=== PATIENT | female | born 1965 | race Caucasian/White ===

== ENCOUNTER 2021-10-04 10:52 | Observation (INO) | payer BC ==
--- OUTSIDE RECORDS SUMMARY | 2021-10-04 10:55 | XMS REPORT | Continuity of Care Document ---
:1965 Author Organization [facility] t Address [address] [place] [address] Care Team Providers Name Role Phone ADELAIDA Attending Clinician Unavailable Lab, Fam Pob I Attending Clinician Unavailable Anene PACKAGING SUPERVISOR Attending Clinician ANENE Attending Clinician Unavailable Doctor Unassigned, Name Attending Clinician Unavailable ADELAIDA Admitting Clinician Unavailable NARCISO Admitting Clinician Unavailable Payers Payer Name Policy Type Policy Number Effective Date Expiration Date S hellen BS OS [id number] 2017 00:00:00 POS/PPO/EPO Problems This patient has no known problems. Allergies, Adverse Reactions, Alerts Allergy Allergy Status Severity Reaction(s) Onset Inactive Treating Comm ents Source Name Type Date Date Clinician PROPOXYP Allergy Active 2020-[address] [facility]OPHEN 00 Center PENICILL Allergy Active 2020-[address] [facility] NO KNOWN Drug Active Univers ALLERGIE Class it[facility] of [facility] Social History Social Habit Start Date Stop Date Quantity Comments Source Exposure to Yes [facility] SARS-CoV-2 (event) Medica l Branch Sex Assigned At [birth year] [facility] 00:00:00 00:00:00 [facility] Smoking Status Start Date Stop Date Source Unknown if ever smoked [facility] Medications This patient has no known medications. Vital Signs Vital Name Observation Time Observation Value Comments Source HEIGHT 2020-04-01 00:00:00 173.7 cm WEIGHT 2020-04-01 00:00:00 76 kg HEIGHT 2020-04-01 00:00:00 173.7 cm WEIGHT 2020-04-01 00:00:00 76 kg Procedures This patient has no known procedures. Encounters Start End Encounter Admission Attending Care Care Encounter Source Date/Time Date/Time Type Type Clinicians Facility Department ID 2020-04-01 Inpatient ER ADELAIDA [facility] [id number] [facility] 19:58:00 ZAIN Med 2020-11-03 2020-11-03 Laboratory Lab, Adc Fam Pob I [facility] [id number] Univers 14:44:53 15:04:53 Only Niru [facility] [id number] [facility] of [facility] [id number] Silas as Professio [phone] [address] Office Building One 2020-11-03 2020-11-03 Outpatient R [facility] [id number] [facility] 14:40:00 14:40:00 NIRU it[facility] of [facility] 2020-11-03 2020-11-03 Letter Doctor TIERA [id number] Univers 00:00:00 00:00:00 (Out) Unassigned, DENILSON [id number] ity of [place] [facility] [id number] Silas as [phone] [address] Results Test Description Test Time Test Comments Results Result Comments Source BLOOD CULTURE 2020-04-07 01:01:00 Test Item Value Reference Range Interpretation Comme nts CULTURE (BEAKER) (test code = 1095) No growth in 5 days BLOOD [id number] 01:01:00 Test Item Value Reference Range Interpretation Comments CULTURE (BEAKER) (test No growth in 5 days code = 1095) TISSUE [id number] 10:54:00Surgical Pathology Report Case: [id number] Authorizing Provider: Duc Byers MD Collected: 04/03/2020 07:13 AM Ordering Location: [address] Med/Surg Received: 04/03/2020 08:34 AM Pathologist: Xin Hansen MD Specimen: Ul cer, pyloric ulcer PYLORIC ULCER, BIOPSY: - ANTRAL MUCOSA WITH REACTIVE GASTROPATHY WITH FOCAL ACUTE INFLAMMATION - NO INTESTINAL METAPLASIA, DYSPLASIA OR MALIGNANCY SEEN - NEGATIVE FOR H. PYLORI ORGANISMS Signing Pathologist Direct Phone Line: [phone] signed by Xin Hansen MD on 04/06/2020 at 10:54 [id number]; [id number] pain and weight lossPyloric ulcerSpecimen A is received in fixative and labeled with the patient's name, medical record number and designated as "ulcer" and consists of a pink-conklin tissue fragment that is 0.5 cm in greatest dimension. The tissue fragment is entirely submitted into A1. MG/pl Performed The interpretation of this case included the use of immunohistochemistryor special stains.Anand-starshakira: Negative for Helicobacter Pylori organisms. Control Slides Examined: In-house known positive controls were evaluated along with the test tissue. These control slidesrun alongside of the patients sample show appropriate staining. Internal positive and negative controls when available are evaluated Immunohistochemistry technical testing was performed at [facility], Pathology Laboratory where it was developed and its performance characteristicswere determined. It has not been cleared or approved by the U.S. Food and Drug Administration. The FDA has determined that such clearance or approval is not necessary. The test is used for clinical purposes. It should not be regarded as investigational or for research. This laboratory is certified under the Clinical Laboratory Improvement Amendments of 1988 (CLIA-88) as qualified to perform high complexity clinical laboratory testing.BASIC METABOLIC [id number] 14:16:00 Test Item Value Reference Range Interpretation Comments SODIUM (BEAKER) 134 meq/L 135-148 L (test code = 381) POTASSIUM (BEAKER) 3.0 meq/L 3.6-5.5 L (test code = 379) CHLORIDE (BEAKER) 100 meq/L 98-106 (test code = 382) CO2 (BEAKER) (test 24 meq/L 20-29 code = 355) BLOOD UREA NITROGEN 5 mg/dL 10-26 L (BEAKER) (test code = 354) CREATININE (BEAKER) 0.69 mg/dL 0.50-1.20 (test code = 358) GLUCOSE RANDOM 134 mg/dL 70-110 H (BEAKER) (test code = 652) CALCIUM (BEAKER) 8.4 mg/dL 8.5-10.5 L (test code = 697) EGFR (BEAKER) (test 89 mL/min/1.73 ESTIMA OSVALDO GFR IS code = 1092) sq m NOT ACCURATE CREATININE CLEARANCE IN PREDICTING GLOMERULAR FILTRATION RATE . ESTIMATED GFR I S NOT APPLICABLE FOR DIALYSIS PATIEN TS. Sweater Operator ID - TSYRBASIC METABOLIC [id number] 06:48:00 Test Item Value Reference Range Interpretation Comments SODIUM (BEAKER) 138 meq/L 135-148 (test code = 381) POTASSIUM (BEAKER) 2.8 meq/L 3.6-5.5 L (test code = 379) CHLORIDE (BEAKER) 100 meq/L 98-106 (test code = 382) CO2 (BEAKER) (test 25 meq/L 20-29 code = 355) BLOOD UREA NITROGEN 4 mg/dL 10-26 L (BEAKER) (test code = 354) CREATININE (BEAKER) 0.66 mg/dL 0.50-1.20 (test code = 358) GLUCOSE RANDOM 92 mg/dL 70-110 (BEAKER) (test code = 652) CALCIUM (BEAKER) 8.5 mg/dL 8.5-10.5 (test code = 697) EGFR (BEAKER) (test 94 mL/min/1.73 ESTIMA OSVALDO GFR IS code = 1092) sq m NOT ACCURATE CREATININE CLEARANCE IN PREDICTING GLOMERULAR FILTRATION RATE . ESTIMATED GFR I S NOT APPLICABLE FOR DIALYSIS PATIEN TS. Sweater Operator ID - [id number] 06:20:00 Test Item Value Reference Range Interpretation Comments MAGNESIUM (BEAKER) (test code = 1.6 mg/dL 1.5-3.0 627) Sweater Operator ID - [id number] (HEMOGRAM ONLY)2020-04-04 05:42:00 Test Item Value Reference Range Interpretation Comments WHITE BLOOD CELL COUNT (BEAKER) 16.4 K/ L 4.0-10.0 H (test code = 775) RED BLOOD CELL COUNT (BEAKER) 4.08 M/ L 4.00-5.00 (test code = 761) HEMOGLOBIN (BEAKER) (test code = 12.7 GM/DL 12.0-15.5 410) HEMATOCRIT (BEAKER) (test code = 37.3 % 36.0-46.0 411) MEAN CORPUSCULAR VOLUME (BEAKER) 91.4 fL 82.0-99.0 (test code = 753) MEAN CORPUSCULAR HEMOGLOBIN 31.1 pg 27.0-33.0 (BEAKER) (test code = 751) MEAN CORPUSCULAR HEMOGLOBIN CONC 34.0 GM/DL 32.0-36.0 (BEAKER) (test code = 752) RED CELL DISTRIBUTION WIDTH 12.6 % 12.0-15.0 (BEAKER) (test code = 412) PLATELET COUNT (BEAKER) (test 233 K/CU MM 150-430 code = 756) MEAN PLATELET VOLUME (BEAKER) 9.7 fL 6.0-11.5 (test code = 754) NUCLEATED RED BLOOD CELLS 0 /100 WBC 0-0 (BEAKER) (test code = 413) U/S, ABDOMINAL, [id number] 17:44:00Reason for exam:->persistent nausea and abdominal painFINAL REPORT EXAM: U/S, ABDOMINAL, COMPLETEDATE: 04/03/2020 5:36 PM INDICATION: Persistent nausea and generalized abdominal painCOMPARISON: None TECHNIQUE: Transverse and longit udinal raines scale and color doppler sonographic images of the abdomen were obtained. FINDINGS: LIVER15.3 cm in the right midclavicular line.Liver is mildly echogenic with normal contour, no masses. SPLEEN9.8 cm in maximum diameter.Normal echogenicity, no masses. GALLBLADDERSurgically absent. BILE DUCTSNo intra nor extra-hepatic biliary dilation.Common bile duct measures 1.1cm PANCREAS: Not well visualized RIGHT KIDNEY: 10.6 cmEchogenicity: NormalCollecting System: No hydronephrosisStones: NoneCyst/Mass: None LEFT KIDNEY: 11.6 cmEchogenicity: NormalCollecting System: No hydronephrosisStones: NoneCyst/Mass: None VESSELS:Aorta: Visualized portions are within normal size limitsInferior Vena Cava: Visualized portions are normalMain Portal Vein: 1.0 cm, normal size with hepatopetal flow. FREE FLUID: None IMPRESSION: 1. Hepatic steatosis.2. Postoperative changes from cholecystectomy. CBD measures up to 1.1 cm. Negative for intrahepatic biliary dilatation. Extrahepatic biliary dilatation can be seen in patients with postcholecystectomy state. Correlate with lab values. Consider follow-up MRCPif clinically indicated. Signed: Jessica Forrester MDReport Verified Date/Time: 04/03/2020 17:44:29 Reading Location: [facility] C013T Transitional Reading Room SARS-COV2/RT-PCR ([facility])2020-04-02 22:33:00 Test Item Value Reference Range Interpretation Comments SARS-COV2/RT-PCR (test Negative Not Detected, Negative, code = 8452577) See external report for linked test SARS-COV-2 PERFORMING LAB [facility] AGNIESZKA (test code = 6886278) Negative result for this test determines that SARS-CoV-2 RNA was not present in the specimen above the Limit of Detection (LOD). However, Negative results do not preclude SARS-CoV-2 infection and should not be used as the sole basis for treatment or patient management decisions. Negative results mustbe combined with clinical observations, patient history, and epidemiological information. A false negative result may occur if a specimen is improperly collected, transported or handled. A false negative result should be considered if patient's recent exposures or clinical presentation indicate that COVID-19 (SARS-CoV-2) is likely and diagnostic tests for other causes of illness are negative. Re-testing should be considered in cases of suspected false negatives.The limit of detection for this assay is 800 copies/mL.This SARS CoV-2 test is a real-time RT-PCR test intended for the qualitative detection of nucleic acid from SARS-CoV-2 in a nasopharyngeal swab specimen collected from individuals susp ected of COVID-19 by their healthcare provider.This test has not been Food and Drug Administration (FDA) cleared or approved. This is a modified version of an approved Emergency Use Authorization (EUA) and is in the process of review by the FDA. Once authorized by the FDA, the issued EUA will be effective until the declaration that circumstances exist justifying the authorization of the emergency use of in vitro diagnostic tests for detection and/or diagnosis of COVID-19 is terminated under Section 564(b)(2) of the Act or the EUA is revoked under Section 564(g) of the Act.Fact Sheet for Healthcare Providers:https://www.Synference.com/sites/default/files/product/documents/Fact_Alexandro moralest_YK_Xjxqfnlyk_Rhkk_QVFD-VhF-8.pdfFact Sheet for Healthcare Patients:https://www.Synference.Celleration/sites/default/files/product/ documents/Uwju_Nxjvp_Jphegnov_Tlii_NWJC-EaB-3.pdfPerforming Laboratory:[facility] [place], [place] [address]UMQNV METABOLIC PANEL 2020-04-02 11:24:00 Test Item Value Reference Range Interpretation Comments SODIUM (BEAKER) 138 meq/L 135-148 (test code = 381) POTASSIUM (BEAKER) 3.1 meq/L 3.6-5.5 L (test code = 379) CHLORIDE (BEAKER) 105 meq/L 98-106 (test code = 382) CO2 (BEAKER) (test 24 meq/L 20-29 code = 355) BLOOD UREA NITROGEN 9 mg/dL 10-26 L (BEAKER) (test code = 354) CREATININE (BEAKER) 0.71 mg/dL 0.50-1.20 (test code = 358) GLUCOSE RANDOM 99 mg/dL 70-110 (BEAKER) (test code = 652) CALCIUM (BEAKER) 8.4 mg/dL 8.5-10.5 L (test code = 697) EGFR (BEAKER) (test 86 mL/min/1.73 ESTIMA OSVALDO GFR IS code = 1092) sq m NOT ACCURATE CREATININE CLEARANCE IN PREDICTING GLOMERULAR FILTRATION RATE . ESTIMATED GFR I S NOT APPLICABLE FOR DIALYSIS PATIEN TS. Sweater Operator ID - [id number] (HEMOGRAM ONLY)2020-04-02 11:08:00 Test Item Value Reference Range Interpretation Comments WHITE BLOOD CELL COUNT (BEAKER) 18.2 K/ L 4.0-10.0 H (test code = 775) RED BLOOD CELL COUNT (BEAKER) 4.05 M/ L 4.00-5.00 (test code = 761) HEMOGLOBIN (BEAKER) (test code = 12.7 GM/DL 12.0-15.5 410) HEMATOCRIT (BEAKER) (test code = 38.7 % 36.0-46.0 411) MEAN CORPUSCULAR VOLUME (BEAKER) 95.6 fL 82.0-99.0 (test code = 753) MEAN CORPUSCULAR HEMOGLOBIN 31.4 pg 27.0-33.0 (BEAKER) (test code = 751) MEAN CORPUSCULAR HEMOGLOBIN CONC 32.8 GM/DL 32.0-36.0 (BEAKER) (test code = 752) RED CELL DISTRIBUTION WIDTH 13.2 % 12.0-15.0 (BEAKER) (test code = 412) PLATELET COUNT (BEAKER) (test 286 K/CU MM 150-430 code = 756) MEAN PLATELET VOLUME (BEAKER) 9.6 fL 6.0-11.5 (test code = 754) NUCLEATED RED BLOOD CELLS 0 /100 WBC 0-0 (BEAKER) (test code = 413) CBC W/PLT COUNT & AUTO [id number] 23:22:00 Test Item Value Reference Range Interpretation Comments WHITE BLOOD CELL COUNT (BEAKER) 24.2 K/ L 4.0-10.0 H (test code = 775) RED BLOOD CELL COUNT (BEAKER) 4.53 M/ L 4.00-5.00 (test code = 761) HEMOGLOBIN (BEAKER) (test code = 14.3 GM/DL 12.0-15.5 410) HEMATOCRIT (BEAKER) (test code = 43.4 % 36.0-46.0 411) MEAN CORPUSCULAR VOLUME (BEAKER) 95.8 fL 82.0-99.0 (test code = 753) MEAN CORPUSCULAR HEMOGLOBIN 31.6 pg 27.0-33.0 (BEAKER) (test code = 751) MEAN CORPUSCULAR HEMOGLOBIN CONC 32.9 GM/DL 32.0-36.0 (BEAKER) (test code = 752) RED CELL DISTRIBUTION WIDTH 13.2 % 12.0-15.0 (BEAKER) (test code = 412) PLATELET COUNT (BEAKER) (test 309 K/CU MM 150-430 code = 756) MEAN PLATELET VOLUME (BEAKER) 10.0 fL 6.0-11.5 (test code = 754) NUCLEATED RED BLOOD CELLS 0 /100 WBC 0-0 (BEAKER) (test code = 413) (MANUAL DIFFERENTIAL)2020-04-01 23:22:00 Test Item Value Reference Range Interpretation Comments NEUTROPHILS - REL (DIFF) (BEAKER) 76 % (test code = 1359) LYMPHOCYTES - REL (DIFF) (BEAKER) 19 % (test code = 1360) MONOCYTES - REL (DIFF) (BEAKER) 5 % (test code = 1361) NEUTROPHILS - ABS (DIFF) (BEAKER) 18.39 K/ L 1.80-8.00 H (test code = 1365) LYMPHOCYTES - ABS (DIFF) (BEAKER) 4.60 K/ L 1.48-4.50 H (test code = 1366) MONOCYTES - ABS (DIFF) (BEAKER) 1.21 K/ L 0.00-1.30 (test code = 1367) TOTAL COUNTED (BEAKER) (test code 100 = 1351) WBC MORPHOLOGY (BEAKER) (test code Normal = 487) PLT MORPHOLOGY (BEAKER) (test code Normal = 486) RBC MORPHOLOGY (BEAKER) (test code Normal = 762) BASIC METABOLIC [id number] 22:55:00 Test Item Value Reference Range Interpretation Comments SODIUM (BEAKER) 139 meq/L 135-148 (test code = 381) POTASSIUM (BEAKER) 3.1 meq/L 3.6-5.5 L (test code = 379) CHLORIDE (BEAKER) 103 meq/L 98-106 (test code = 382) CO2 (BEAKER) (test 25 meq/L 20-29 code = 355) BLOOD UREA NITROGEN 11 mg/dL 10-26 (BEAKER) (test code = 354) CREATININE (BEAKER) 0.81 mg/dL 0.50-1.20 (test code = 358) GLUCOSE RANDOM 113 mg/dL 70-110 H (BEAKER) (test code = 652) CALCIUM (BEAKER) 8.9 mg/dL 8.5-10.5 (test code = 697) EGFR (BEAKER) (test 74 mL/min/1.73 ESTIMA OSVALDO GFR IS code = 1092) sq m NOT ACCURATE CREATININE CLEARANCE IN PREDICTING GLOMERULAR FILTRATION RATE . ESTIMATED GFR I S NOT APPLICABLE FOR DIALYSIS PATIEN TS. Sweater Operator ID - [id number] 22:54:00 Test Item Value Reference Range Interpretation Comments MAGNESIUM (BEAKER) (test code = 1.8 mg/dL 1.5-3.0 627) Sweater Operator ID - [id number] FUNCTION [id number] 22:53:00 Test Item Value Reference Range Interpretation Comments TOTAL PROTEIN (BEAKER) (test code = 6.7 gm/dL 6.0-8.5 770) ALBUMIN (BEAKER) (test code = 1145) 3.7 g/dL 3.5-5.0 BILIRUBIN TOTAL (BEAKER) (test code 0.5 mg/dL 0.1-1.2 = 377) BILIRUBIN DIRECT (BEAKER) (test 0.3 mg/dL 0.0-0.4 code = 706) ALKALINE PHOSPHATASE (BEAKER) (test 102 U/L 30-115 code = 346) AST (SGOT) (BEAKER) (test code = 17 U/L 5-40 353) ALT (SGPT) (BEAKER) (test code = 13 U/L 5-50 347) Sweater Operator ID - [id number] 22:48:00 Test Item Value Reference Range Interpretation Comments PROTIME (BEAKER) (test code = 759) 12.2 sec 9.3-12.0 H INR (BEAKER) (test code = 370) 1.13 <=5.90 RECOMMENDED COUMADIN/WARFARIN INR THERAPY RANGESSTANDARD DOSE: 2.0 - 3.0 Includes: PROPHYLAXIS forvenous thrombosis, systemic embolization; TREATMENT for venous thrombosis and/or pulmonary embolus.HIGH RISK: Target INR is 2.5-3.5 for patients with mechanical heart valves.Final Information (Auto Output)Final Information (Auto Output)LACTIC ACID, [id number] 22:47:00 Test Item Value Reference Range Interpretation Comments LACTATE BLOOD VENOUS (2) (BEAKER) 1.09 mmol/L 0.50-2.00 (test code = 2872) Sweater Operator ID - [id number]
[2021-10-04] MEDS ORDERED: NA CHLORIDE 0.9% 1,000 ML ONE (11:31)
[2021-10-04] MEDS ORDERED: TETANUS & DIPHTHERIA TOX,ADULT 0.5 ML VIAL ONE (11:31)
[2021-10-04] MEDS ORDERED: MORPHINE 2 MG/ML SYR ONE ×2 (11:31→12:43)
[2021-10-04] MEDS ORDERED: ONDANSETRON 4 MG/2 ML VIAL ONE (11:31)
[2021-10-04 12:07] LABS: Absolute Lymphocytes (CBC) 2.9 K/uL (0.7-4.9); Hematocrit 47.8 % (36.0-45.0); Lymphocytes % 18.8 % (15.3-44.8); MPV 8.3 fL (7.6-11.3)
--- NOTE | 2021-10-04 12:25 | RAD REPORT ---
EXAM DESCRIPTION: RAD - Hand Left 3 View - 10/04/2021 12:18 pm CLINICAL HISTORY: PAIN COMPARISON: No comparisons FINDINGS/IMPRESSION: No acute fracture. No malalignment. No significant focal degenerative changes.
--- NOTE | 2021-10-04 12:25 | RAD REPORT ---
EXAM DESCRIPTION: RAD - Shoulder Right 2 View - 10/04/2021 12:15 pm CLINICAL HISTORY: PAIN COMPARISON: No comparisons FINDINGS/IMPRESSION: No acute fracture. No malalignment. Moderate right AC and glenohumeral joint de generative changes.
[2021-10-04 12:26] LABS: Albumin 3.7 g/dL (3.4-5.0); Bilirubin Direct 0.3 mg/dL (0-0.2); Bilirubin Total 1.2 mg/dL (0.2-1.0); Potassium 3.2 mmol/L (3.5-5.1); Protein, Total 8.1 g/dL (6.4-8.2)
--- NOTE | 2021-10-04 13:38 | RAD REPORT ---
EXAM DESCRIPTION: CT - Head C Spine Cap Agata Rivera - 10/04/2021 1:02 pm CLINICAL HISTORY: Head and neck injury with chest and abdominal pain status post fall. Head and neck pain . TECHNIQUE: Computed axial tomography of the head and cervical spine was obtained Computed axial tomography of the chest, abdomen and pelvis was obtained. 100 cc Isovue-300 was given intravenously coronal and sagittal reconstruction was performed. All CT scans are performed using dose optimization technique as appropriate and may include automated exposure control or mA/KV adjustment according to patient size. COMPARISON: None FINDINGS: An intracranial bleed is not seen. The ventricles are normal in caliber. An extra-axial fl uid collection is not noted. Fluid within the sinuses is not seen A cervical fracture is not seen. No dislocation is seen. A mediastinal hematoma is not noted. A pleural effusion is not present. A lung contusion is not seen. Nondisplaced fractures right third, fourth and fifth lateral ribs. COPD. 12 millimeter spiculated op acity left upper lobe The liver, spleen, pancreas, adrenals, kidneys and bladder do not demonstrate a traumatic injury Moderate stenosis celiac artery. 36 millimeter radiopaque structure within the cecum IMPRESSION: No acute intracranial abnormality is seen A cervical fracture is not visualized. If the patient continues have symptoms to suggest intracranial /spinal cord pathology then MRI would be recommended. Nondisplaced right rib fracture is probably old. However, this should be correlated clinically. 36 millimeter radiopaque structure within the cecum presumably a foreign body. This should be correla ryan clinically as well 12 millimeter spiculated opacity left upper lobe probably scarring. Followup unenhanced CT chest in 3 months is recommended for re-evaluation
[2021-10-04] MEDS ORDERED: POTASSIUM 25 MEQ EFFERV TAB ONE (14:02)
--- NOTE | 2021-10-04 15:28 | ER ---
Nurse's Notes [facility] Name: Hannah Arthur Age: 56 yrs Sex: Female : 1965 Arrival Date: 10/04/2021 Time: 10:56 Bed 16 Private MD: Diagnosis: Presentation: 10/04 11:00 Chief complaint: EMS states: PT reports that she was vacationing in [place] and ph slipped on ice and mud and fell from approx 30-40 foot jn, rolled/tumbled multiple times, reports that she was there w/ her parents who did not call for assistance and had to climb back up the jn herself. +LOC, abrasions to L hand and chin, c/o pain all over, worse in the R shoulder and R rib area. Also reports dizziness, N/V. States that her parents refused to let her seek medical treatment while in [place] "because they didn't want to ruin their vacation. Incident occurred 4 days ago. Coronavirus screen: Vaccine status: Patient reports receiving the 2nd dose of the covid vaccine. Ebola Screen: No symptoms or risks identified at this time. Initial Sepsis Screen: Does the patient meet any 2 criteria? No. Patient's initial sepsis screen is negative. Does the patient have a suspected source of infection? No. Patient's initial sepsis screen is negative. Risk Assessment: Do you want to hurt yourself or someone else? Patient reports no desire to harm self or others. Onset of symptoms was October 04, 2021. 11:00 Method Of Arrival: EMS: [facility] 11:00 Acuity: AIDEE 2 ph 11:23 Care prior to arrival: None. Mechanism of Injury: Fall a jn approximately 35 feet. ph Trauma event details: Injury occurred in the county [place] in [place] Injury occurred: in a recreational area. Injury occurred: September 30, 2021. Trauma Activation: Not Applicable Physician: ED Physician; Name: ; Notified At: ; Arrived At: Physician: General Surgeon; Name: ; Notified At: ; Arrived At: Physician: Radiology; Name: ; Notified At: ; Arrived At: Physician: Respiratory; Name: ; Notified At: ; Arrived At: Physician: Lab; Name: ; Notified At: ; Arrived At: Historical: - Allergies: 11:19 PENICILLINS; ph 11:19 Darvocet-N 100; ph - Home Meds: 11:19 Lyrica Oral [Active]; tizanidine oral [Active]; ph - PMHx: 11:19 Lupus; Arthritis; ph - Immunization history: Last tetanus immunization: unknown. - Social history:: Smoking status: Patient reports the use of cigarette tobacco products, denies chronic smoking, but will smoke occasionally. Screenin:22 Abuse screen: Denies threats or abuse. Denies injuries from another. Nutritional ph screening: No deficits noted. Tuberculosis screening: No symptoms or risk factors identified. Fall Risk Fall in past 12 months (25 points). No secondary diagnosis (0 pts). IV access (20 points). Ambulatory Aid- None/Bed Rest/Nurse Assist (0 pts). Gait- Normal/Bed Rest/Wheelchair (0 pts) Mental Status- Oriented to own ability (0 pts). Total Dominguez Fall Scale indicates High Risk Score (45 or more points). Fall prevention measures have been instituted. Side Rails Up X 2 Placed Close to Nursing Station Frequent Obs/Assessments Occuring As available patient and family educated on Fall Prevention Program and Strategies. Primary Survey: 11:20 NO uncontrolled hemorrhage observed. A: The patient is alert. Airway: patent, No ph supplemental oxygen in use on arrival. Oral cavity: clear, Trachea midline. Breathing/Chest: Respiratory pattern: regular, Respiratory effort: spontaneous, unlabored. Circulation: Pulses: palpable right radial artery and left radial artery. Skin color: pink, Skin temperature: warm, dry. Disability Alert. Exposure/Environment: All clothing and personal items were removed. Forensic evidence collection is not deemed to be indicated at this time. Items placed in patient belonging bag. There is no evidence of uncontrolled external bleeding. Obvious injury(ies) are noted at this time: abrasions to dorsal aspect of R hand and chin, not actively bleeding, scabbed over A warming method has been applied: A warm blanket has been provided to the patient. 15:40 Reassessment Airway Airway Patent Breathing/Chest Respiratory pattern Regular ph Respiratory effort Spontaneous Unlabored Circulation Color [place] Temperature Warm Dry Disability Alert. Secondary Survey: 11:21 HEENT: Head Other abrasion to chin. Gastrointestinal: No deficits noted. Patient ph reports Nausea. : No signs and/or symptoms were reported regarding the genitourinary system. Musculoskeletal: Circulation, motion, and sensation intact. Reports pain in right shoulder. Injury Description: Abrasion sustained to left hand and chin. Assessment: 11:17 General: Appears in no apparent distress. uncomfortable, unkempt, Behavior is ph cooperative, anxious, crying. Pain: Complains of pain in "all over" most in R shoulder, R ribs, and R flank. Neuro: Level of Consciousness is awake, alert, obeys commands, Oriented to person, place, time, situation, Reports dizziness. Cardiovascular: Capillary refill < 3 seconds in bilateral fingers Patient's skin is warm and dry. Respiratory: Reports pain with movement pain with respiration Airway is patent Respiratory effort is even, unlabored, Respiratory pattern is regular, symmetrical. GI: Reports nausea, vomiting, Patient currently denies abdominal pain. : No signs and/or symptoms were reported regarding the genitourinary system. Derm: Skin is pink, warm \\T\\ dry. Musculoskeletal: Circulation, motion, and sensation intact. Range of motion: limited in right shoulder. Injury Description: Abrasion sustained to chin and left hand is scabbed. 11:53 Reassessment: Patient appears in no apparent distress at this time. Patient and/or ph family updated on plan of care and expected duration. Pain level reassessed. Patient is alert, oriented x 3, equal unlabored respirations, skin warm/dry/pink. Radiology at bedside for xrays. 15:00 Reassessment: Patient appears in no apparent distress at this time. Patient and/or ph family updated on plan of care and expected duration. Pain level reassessed. Patient is alert, oriented x 3, equal unlabored respirations, skin warm/dry/pink. Dr Bowman at bedside to speak w/ pt about possible foreign body seen on CT results, pt denies swallowing any foreign bodies, also denies any illicit drug use, states, " I have smoked pot before and I took some Valium before I came home from [place] but that's it." Pt ambulatory to restroom, given cup to provide urine sample, upon exiting restroom urine cup was empty, pt states, " I peed before I could get the cup open.". 15:31 Reassessment: Patient appears in no apparent distress at this time. Patient and/or ph family updated on plan of care and expected duration. Pain level reassessed. Patient is alert, oriented x 3, equal unlabored respirations, skin warm/dry/pink. Dr Hanna at bedside to speak w/ pt. 16:50 Reassessment: Patient appears in no apparent distress at this time. Patient and/or ph family updated on plan of care and expected duration. Pain level reassessed. Patient is alert, oriented x 3, equal unlabored respirations, skin warm/dry/pink. Hospitalist at bedside to speak w/ pt, pt states that she does not want to be admitted. 17:00 Reassessment: Patient appears in no apparent distress at this time. Patient and/or ph family updated on plan of care and expected duration. Pain level reassessed. Patient is alert, oriented x 3, equal unlabored respirations, skin warm/dry/pink. Covid swab ordered for admission purposes, pt again states that she does not want to be admitted, states, " I just want to go home and see my dog. I came to get checked out because I was hurting so much after the fall and y'all said nothing is broken. I swear that I didn't swallow anything. I just want to go home." Informed pt that she would need to sign out AMA to which she agreed. 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 Vital Signs: 11:00 BP 109 / 83; Pulse 89; Resp 20; Temp 97.8; Pulse Ox 100% on R/A; Weight 81.65 kg; ph Height 5 ft. 9 in. (175.26 cm); 12:03 BP 107 / 78; Pulse 83; Resp 18; Pulse Ox 98% on R/A; ph 13:30 BP 112 / 70; Pulse 81; Resp 18; Pulse Ox 98% on R/A; ph 14:30 BP 102 / 72; Pulse 86; Resp 18; Pulse Ox 99% on R/A; ph 15:30 BP 119 / 78; Pulse 87; Resp 16; Pulse Ox 99% on R/A; ph 16:30 BP 113 / 68; Pulse 89; Resp 18; Temp 97.2; Pulse Ox 100% on R/A; ph 11:00 Body Mass Index 26.58 (81.65 kg, 175.26 cm) ph Arielle Coma Score: 11:22 Eye Response: spontaneous(4). Verbal Response: oriented(5). Motor Response: obeys ph commands(6). Total: 15. 15:30 Eye Response: spontaneous(4). Verbal Response: oriented(5). Motor Response: obeys ph commands(6). Total: 15. 16:30 Eye Response: spontaneous(4). Verbal Response: oriented(5). Motor Response: obeys ph commands(6). Total: 15. Trauma Score (Adult): 11:22 Eye Response: spontaneous(1); Verbal Response: oriented(1); Motor Response: obeys ph commands(2); Systolic BP: > 89 mm Hg(4); Respiratory Rate: 10 to 29 per min(4); [place] Score: 15; Trauma Score: 12 15:30 Eye Response: spontaneous(1); Verbal Response: oriented(1); Motor Response: obeys ph commands(2); Systolic BP: > 89 mm Hg(4); Respiratory Rate: 10 to 29 per min(4); [place] Score: 15; Trauma Score: 12 16:30 Eye Response: spontaneous(1); Verbal Response: oriented(1); Motor Response: obeys ph commands(2); Systolic BP: > 89 mm Hg(4); Respiratory Rate: 10 to 29 per min(4); [place] Score: 15; Trauma Score: 12 ED Course: 10:56 Patient arrived in ED. ph 10:59 Obi Whitman PA is PHCP. jm 10:59 Anatoliy Bowman MD is Attending Physician. jm 11:07 Triage completed. ph 11:17 Estelita Coronado, RN is Primary Nurse. ph 11:23 Patient maintains SpO2 saturation greater than 95% on room air. ph 11:23 Arm band placed on. ph 11:23 Patient has correct armband on for positive identification. Placed in gown. Bed in low ph position. Call light in reach. Side rails up X2. Pulse ox on. NIBP on. Door closed. Noise minimized. 11:25 Thermoregulation: warm blanket given to patient. ph 11:49 Inserted saline lock: 20 gauge in left antecubital area, using aseptic technique. mb7 12:15 Shoulder Right (2 View) XRAY In Process Unspecified. EDMS 12:18 Hand Left 3 View XRAY In Process Unspecified. EDMS 13:02 CT Traumagram (Head C Spine CAP W Con) In Process Unspecified. EDMS 15:19 Kirit Bernardo MD is Hospitalizing Provider. [facility] 16:01 Pelvis In Process Unspecified. EDMS 17:27 No provider procedures requiring assistance completed. IV discontinued, intact, ph bleeding controlled, No redness/swelling at site. Pressure dressing applied. Administered Medications: 11:52 Drug: NS 0.9% 1000 ml Route: IV; Rate: 1 bolus; Site: left antecubital; ph 13:30 Follow up: Response: No adverse reaction; IV Status: Completed infusion; IV Intake: ph 1000ml 11:52 Drug: Zofran (Ondansetron) 4 mg Route: IVP; Site: left antecubital; ph 12:30 Follow up: Response: No adverse reaction ph 11:53 Drug: morphine 2 mg Route: IVP; Site: left antecubital; ph 12:42 Drug: morphine 2 mg {Note: RASS 0.} Route: IVP; Site: left antecubital; tw2 13:30 Follow up: Response: No adverse reaction ph 16:00 Drug: Potassium Effervescent Tablet 50 mEq Route: PO; ph 16:30 Follow up: Response: No adverse reaction ph 17:26 Not Given (pt left AMA): NS 0.9% with KCl 20 mEq/L 1000 ml IV at 125 ml/hr continuous ph 17:27 Not Given (Patient Refused): Tetanus-Diphtheria Toxoid Adult 0.5 ml IM once ph Intake: 13:30 IV: 1000ml; Total: 1000ml. ph Outcome: 15:27 Decision to Hospitalize by Provider. jeni 17:25 Patient left the ED. ph 17:25 AMA AMA form signed ph 17:25 Condition: stable Signatures: Dispatcher [employer] EDAnatoliy Martin MD MD cha Mickail, Joel, PA PA jmm Hall, Patricia, RN RN ph Wise, Tara, RN RN [facility] Barbara Banuelos 7 Corrections: (The following items were deleted from the chart) 19:31 17:46 Patient left the ED. ph ph
--- NOTE | 2021-10-04 15:28 | EDPHYS ---
Physician Documentation [facility] Name: Hannah Arthur Age: 56 yrs Sex: Female : 1965 Arrival Date: 10/04/2021 Time: 10:56 Bed 16 Private MD: ED Physician Anatoliy Bowman HPI: 10/04 15:11 This 56 yrs old Female presents to ER via EMS with complaints of Fall Injury. jeni 15:11 Details of fall: The patient fell from a height, jn 30 feet. Onset: The jeni symptoms/episode began/occurred 4 day(s) ago. Associated injuries: The patient sustained upper back injury, contusion, decreased range of motion, injury to the low back. Severity of symptoms: At their worst the symptoms were mild, in the emergency department the symptoms have improved, mildly. The patient has not experienced similar symptoms in the past. Historical: - Allergies: 11:19 PENICILLINS; ph 11:19 Darvocet-N 100; ph - Home Meds: 11:19 Lyrica Oral [Active]; tizanidine oral [Active]; ph - PMHx: 11:19 Lupus; Arthritis; ph - Immunization history: Last tetanus immunization: unknown. - Social history:: Smoking status: Patient reports the use of cigarette tobacco products, denies chronic smoking, but will smoke occasionally. ROS: 15:15 Constitutional: Negative for fever, chills, and weight loss, Eyes: Negative for injury, jeni pain, redness, and discharge, ENT: Negative for injury, pain, and discharge, Neck: Negative for injury, pain, and swelling, Cardiovascular: Negative for chest pain, palpitations, and edema, Respiratory: Negative for shortness of breath, cough, wheezing, and pleuritic chest pain, Back: Negative for injury and pain, : Negative for injury, bleeding, discharge, and swelling, Skin: Negative for injury, rash, and discoloration, Neuro: Negative for headache, weakness, numbness, tingling, and seizure, Psych: Negative for depression, anxiety, suicide ideation, homicidal ideation, and hallucinations, Allergy/Immunology: Negative for hives, rash, and allergies, Endocrine: Negative for neck swelling, polydipsia, polyuria, polyphagia, and marked weight changes, Hematologic/Lymphatic: Negative for swollen nodes, abnormal bleeding, and unusual bruising. 15:15 Abdomen/GI: Positive for abdominal pain, of the right lower quadrant and left lower quadrant. 15:15 Back: Positive for decreased range of motion, pain at rest, pain with movement, of the right scapular area. 15:15 MS/extremity: Positive for decreased range of motion, pain, tenderness, of the anterior aspect of right shoulder and posterior aspect of right shoulder, left hand pain. Exam: 15:15 Constitutional: This is a well developed, well nourished patient who is awake, alert, jeni and in no acute distress. Head/Face: Normocephalic, atraumatic. Eyes: Pupils equal round and reactive to light, extra-ocular motions intact. Lids and lashes normal. Conjunctiva and sclera are non-icteric and not injected. Cornea within normal limits. Periorbital areas with no swelling, redness, or edema. ENT: Nares patent. No nasal discharge, no septal abnormalities noted. Tympanic membranes are normal and external auditory canals are clear. Oropharynx with no redness, swelling, or masses, exudates, or evidence of obstruction, uvula midline. Mucous membranes moist. Neck: Trachea midline, no thyromegaly or masses palpated, and no cervical lymphadenopathy. Supple, full range of motion without nuchal rigidity, or vertebral point tenderness. No Meningismus. Chest/axilla: Normal chest wall appearance and motion. Nontender with no deformity. No lesions are appreciated. Cardiovascular: Regular rate and rhythm with a normal S1 and S2. No gallops, murmurs, or rubs. Normal PMI, no JVD. No pulse deficits. Respiratory: Lungs have equal breath sounds bilaterally, clear to auscultation and percussion. No rales, rhonchi or wheezes noted. No increased work of breathing, no retractions or nasal flaring. Back: No spinal tenderness. No costovertebral tenderness. Full range of motion. Pelvic Exam: Normal external genitalia. Speculum exam with closed cervical os, no discharge or bleeding noted. Bimanual exam with normal adnexa, no adnexal or cervical motion tenderness. Normal uterus. Skin: Warm, dry with normal turgor. Normal color with no rashes, no lesions, and no evidence of cellulitis. Neuro: Awake and alert, GCS 15, oriented to person, place, time, and situation. Cranial nerves II-XII grossly intact. Motor strength 5/5 in all extremities. Sensory grossly intact. Cerebellar exam normal. Normal gait. 15:15 Abdomen/GI: Inspection: abdomen appears normal, Bowel sounds: normal, Palpation: mild abdominal tenderness, in the right lower quadrant and left lower quadrant, Liver: no appreciated palpable abnormalities, Hernia: not appreciated. Vital Signs: 11:00 BP 109 / 83; Pulse 89; Resp 20; Temp 97.8; Pulse Ox 100% on R/A; Weight 81.65 kg; ph Height 5 ft. 9 in. (175.26 cm); 12:03 BP 107 / 78; Pulse 83; Resp 18; Pulse Ox 98% on R/A; ph 13:30 BP 112 / 70; Pulse 81; Resp 18; Pulse Ox 98% on R/A; ph 14:30 BP 102 / 72; Pulse 86; Resp 18; Pulse Ox 99% on R/A; ph 15:30 BP 119 / 78; Pulse 87; Resp 16; Pulse Ox 99% on R/A; ph 16:30 BP 113 / 68; Pulse 89; Resp 18; Temp 97.2; Pulse Ox 100% on R/A; ph 11:00 Body Mass Index 26.58 (81.65 kg, 175.26 cm) ph [place] Coma Score: 11:22 Eye Response: spontaneous(4). Verbal Response: oriented(5). Motor Response: obeys ph commands(6). Total: 15. 15:30 Eye Response: spontaneous(4). Verbal Response: oriented(5). Motor Response: obeys ph commands(6). Total: 15. 16:30 Eye Response: spontaneous(4). Verbal Response: oriented(5). Motor Response: obeys ph commands(6). Total: 15. Trauma Score (Adult): 11:22 Eye Response: spontaneous(1); Verbal Response: oriented(1); Motor Response: obeys ph commands(2); Systolic BP: > 89 mm Hg(4); Respiratory Rate: 10 to 29 per min(4); [place] Score: 15; Trauma Score: 12 15:30 Eye Response: spontaneous(1); Verbal Response: oriented(1); Motor Response: obeys ph commands(2); Systolic BP: > 89 mm Hg(4); Respiratory Rate: 10 to 29 per min(4); [place] Score: 15; Trauma Score: 12 16:30 Eye Response: spontaneous(1); Verbal Response: oriented(1); Motor Response: obeys ph commands(2); Systolic BP: > 89 mm Hg(4); Respiratory Rate: 10 to 29 per min(4); [place] Score: 15; Trauma Score: 12 MDM: 10:59 Patient medically screened. [facility] 15:28 Differential diagnosis: humeral head fracture, tendonitis, chronic back pain, Fracture jeni Joint Injury Ligament Injury Neoplasm ruptured disc, Scoliosis spinal injury, sprain, vertebral fracture. Differential diagnosis: abrasion, closed head injury, contusion, fracture, laceration, multiple trauma, sprain, strain. Data reviewed: vital signs, nurses notes, lab test result(s), radiologic studies, CT scan, plain films. Data interpreted: conveyor monitor: rate is 83 beats/min, rhythm is regular, Pulse oximetry: on room air is 98 %. Test interpretation: by ED physician or midlevel provider: ECG, plain radiologic studies. Counseling: I had a detailed discussion with the patient and/or guardian regarding: the historical points, exam findings, and any diagnostic results supporting the discharge/admit diagnosis, lab results, radiology results, the need for further work-up and treatment in the hospital. 10/04 11:19 Order name: Basic Metabolic Panel; Complete Time: 13:39 [facility] 10/04 11:19 Order name: CBC with Diff; Complete Time: 13:39 [facility] 10/04 11:19 Order name: Type And Screen; Complete Time: 13:39 [facility] 10/04 11:19 Order name: LFT's; Complete Time: 13:39 [facility] 10/04 11:19 Order name: Lipase; Complete Time: 13:39 [facility] 10/04 14:07 Order name: UDS [facility] 10/04 16:19 Order name: COVID-19 SARS RT PCR (Document "Date of Onset" if Symptomatic) 10/04 16:40 Order name: Comprehensive Metabolic Panel [facility] 10/04 16:40 Order name: Comprehensive Metabolic Panel [facility] 10/04 16:40 Order name: CBC with Automated Diff [facility] 10/04 16:40 Order name: CBC with Automated Diff [facility] 10/04 16:40 Order name: Lipid Profile [facility] 10/04 16:40 Order name: Lipid Profile [facility] 10/04 11:19 Order name: CT Traumagram (Head C Spine CAP W Con); Complete Time: 14:18 [facility] 10/04 11:19 Order name: Labs collected and sent; Complete Time: 11:53 [facility] 10/04 11:19 Order name: Hand Left 3 View XRAY; Complete Time: 13:39 [facility] 10/04 11:19 Order name: Shoulder Right (2 View) XRAY; Complete Time: 13:39 [facility] 10/04 11:19 Order name: Wound Care; Complete Time: 17:27 [facility] 10/04 15:54 Order name: Pelvis [facility] 10/04 16:41 Order name: Upper GI W/KUB [facility] 10/04 16:41 Order name: Upper GI W/KUB EDPA Administered Medications: 11:52 Drug: NS 0.9% 1000 ml Route: IV; Rate: 1 bolus; Site: left antecubital; ph 13:30 Follow up: Response: No adverse reaction; IV Status: Completed infusion; IV Intake: ph 1000ml 11:52 Drug: Zofran (Ondansetron) 4 mg Route: IVP; Site: left antecubital; ph 12:30 Follow up: Response: No adverse reaction ph 11:53 Drug: morphine 2 mg Route: IVP; Site: left antecubital; ph 12:42 Drug: morphine 2 mg {Note: RASS 0.} Route: IVP; Site: left antecubital; tw2 13:30 Follow up: Response: No adverse reaction ph 16:00 Drug: Potassium Effervescent Tablet 50 mEq Route: PO; ph 16:30 Follow up: Response: No adverse reaction ph 17:26 Not Given (pt left AMA): NS 0.9% with KCl 20 mEq/L 1000 ml IV at 125 ml/hr continuous ph 17:27 Not Given (Patient Refused): Tetanus-Diphtheria Toxoid Adult 0.5 ml IM once ph Disposition Summary: 10/04/21 17:46 Left Against Medical Advice Location: Home(10/04/21 17:46) ph Condition: Stable(10/04/21 17:46) ph Signatures: Dispatcher [employer] EDPA Anatoliy Bowman MD MD cha Hall, Patricia, RN RN ph Anatoliy San PA PA cp Wise, Tara, RN RN tw2 Corrections: (The following items were deleted from the chart) 15:54 15:15 Abdomen 1 View (KUB)+RAD.RAD.BRZ ordered. EDMS EDMS 17:01 16:40 Potassium ordered. EDMS EDMS 17:46 15:27 Observation jeni ph 17:46 15:27 Kirit Bernardo jeni ph 17:46 15:27 Telemetry/MedSurg (observation) jeni ph 17:46 15:27 Fair jeni ph 17:46 15:27 new jeni ph 17:46 15:27 have improved jeni ph 17:46 15:27 Standard jeni ph 17:46 15:27 jeni ph 17:46 15:27 Fall (on) (from) unspecified stairs and steps - 30 jeni ph 17:46 15:27 Strain of muscle and tendon of back wall of thorax jeni ph 17:46 15:27 Foreign body of alimentary tract, part unspecified - Cecum jeni ph 17:46 15:27 Systemic lupus erythematosus, unspecified jeni ph 17:46 15:27 Elevated white blood cell count jeni ph 17:46 15:34 Other nonspecific abnormal finding of lung field - 12 mm spiculated opacity , ph left upper lobe jeni
--- NOTE | 2021-10-04 16:24 | RAD REPORT ---
EXAM DESCRIPTION: RAD - Pelvis - 10/04/2021 4:01 pm CLINICAL HISTORY: Pelvic pain FINDINGS: No fracture or dislocation is seen. Radiopaque foreign body within the right pelvis may represent a pipe
[2021-10-04] MEDS ORDERED: ONDANSETRON 4 MG/2 ML VIAL IV PRN (16:36)
[2021-10-04] MEDS ORDERED: ALBUTEROL 2.5 MG/3 ML NEB SOL NEB PRN (16:36)
--- NOTE | 2021-10-04 16:36 | P.HP ---
Certification for Inpatient Patient admitted to: Observation With expected LOS: <2 Midnights Patient will require the following post-hospital care: None Practitioner: I am a practitioner with admitting privileges, knowledge of patient current condition, hospital course, and medical plan of care. Services: Services provided to patient in accordance with Admission requirements found in Title 42 Section 412.3 of the Code of Federal Regulations Patient History Date of Service: 10/04/21 Reason for admission: generalized body History of Present Illness: 56-year-old female 56-year-old female with past medical history of lupus, chronic arthritis, not on any steroids, on Lyrica presented because of fall 5 days ago with associated generalized body pain and arm pain. On presentation patient was noted with mild leukocytosis TO 15,000 which is similar to previous WBC count. There was no recorded fever or chills. X-ray of the hands as well as shoulder shows arthritis changes but no acute fracture. She was noted on KUB to have a foreign body in her colon. General surgery consult was obtained. Imaging seems consistent with Pipe in the rectal area. Plan for serial KUB on T foreign body passes - Past Medical/Surgical History Has patient received pneumonia vaccine in the past: No Diabetic: No -: Lupus arthritis -: SLE Past Surgical History: Reviewed- Non-Contributory - Family History Family History: Reviewed- Non-Contributory - Social History Smoking Status: Heavy Tobacco smoker (>10 cigarettes/day) Smoking therapy provided: Yes Alcohol use: No CD- Drugs: No Caffeine use: No Place of Residence: Home Review of Systems 10-point ROS is otherwise unremarkable Physical Examination - Physical Exam General: Alert, In no apparent distress, Oriented x3, Obese HEENT: Atraumatic, Normocephalic, PERRLA Neck: Supple, 2+ carotid pulse no bruit Respiratory: Clear to auscultation bilaterally, Normal air movement Cardiovascular: No edema, Normal pulses, Regular rate/rhythm Gastrointestinal: Normal bowel sounds, Soft and benign, Non-distended Musculoskeletal: No clubbing, No swelling Neurological: Normal gait, Normal speech, Normal strength at 5/5 x4 extr - Studies Laboratory Data (last 24 hrs) 10/04/21 11:40: WBC 15.60 H, Hgb 16.3 H, Hct 47.8 H, Plt Count 290 10/04/21 11:40: Sodium 133 L, Potassium 3.2 L, BUN 16, Creatinine 1.07, Glucose 114 H, Total Bilirubin 1.2 H, AST 24, ALT 35, Alkaline Phosphatase 162 H, Lipase 75 Assessment and Plan - Advance Directives Does patient have a Living Will: No Does patient have a Durable POA for Healthcare: No - Code Status/Comfort Care Code Status Assessed: Yes Code Status: Full Code Physician Review Additional Text: Impression Rectal foreign body History of lupus History of status post fall Chronic tobacco use Plan Admit to observation Replace potassium, start gentle IV fluid with NS with KCl Follow repeat KUB in a.m. As needed pain regimen Continue home medication GI DVT prophylaxis Time Spent Managing Pts Care (In Minutes): 65
[2021-10-04] MEDS ORDERED: MORPHINE 4 MG/ML SYR IV PRN (16:56)
[2021-10-04] MEDS ORDERED: HYDRALAZINE HCL 20 MG/ML VIAL IV PRN (16:56)
[2021-10-04] MEDS ORDERED: NS KCL 20MEQ 20 MEQ/1,000 ML BAG IV SCH (17:00)
[2021-10-04] MEDS ORDERED: ENOXAPARIN 40 MG/0.4 ML SQ SCH (18:00)
[2021-10-04 18:11] VITALS: TEMP 97.8
[2021-10-04 18:15] VITALS: BP 102/72; O2SAT 99
--- NOTE | 2021-10-04 21:38 | CON ---
Date of Consultation: 10/04/2021 Reason: Foreign body in the cecum, rib fracture. History Of Present Illness: The patient is a 56-year-old female, who states that approximately a wee k ago, she fell down a jn approximately 30 feet and slid down in [place]. She did not seek any m edical attention over that area and she states that she is complaining of right shoulder pain and lef t hand, back of the hand was bruised, had some scratches on it. She came to the [facility] last Sanjay s he states and her pain in her shoulder became worse and she came to the emergency room. There is no shortness of breath. There is no dyspnea. There is no abdominal pain. There is some back pain asso ciated with her shoulder pain and neck pain. No diarrhea. No constipation. She denies ingesting an y foreign material. Denies using any narcotics recently. No sore throat, runny nose, cough, headach es, or dizziness. No significant chest pain. No fever or chills. Review of Systems: Otherwise unremarkable. Past Medical History: Significant for lupus and arthritis. Past Surgical History: Significant for appendectomy and cholecystectomy. Allergies: INCLUDE DARVOCET. Social History: The patient states that she has smoked marijuana in the past. She does not smoke an ymore. Drinks alcohol occasionally. Family History: Noncontributory. Physical Examination: Vital Signs: Stable. She is currently afebrile. General: She is awake, alert, and oriented to person and place, but confused about time. Head and Neck: Cranial nerves 2 through 12 are grossly within normal limits. No neck masses. No ne ck tenderness. No JVD. Throat clear. Neck is supple. Trachea midline. Chest: Clear. Heart: S1, S2. Abdomen: Soft, nondistended, and nontender. Extremities: Neurovascularly intact. Neuro: Nonfocal. Musculoskeletal: She has some tenderness in the back, nonspecific and she has some abrasions on left wrist dorsum as well as hand, which are healing and appeared to be old. There is no surrounding bryanna thema, warmth, or edema. Laboratory Data: Shows white count of 15.6, however, there is no left shift. Absolute neutrophils a re elevated, however, 11.3. Chemistry reviewed. Potassium is 3.2, otherwise essentially unremarkabl e. Toxicology is pending. CT of the abdomen and pelvis, chest, neck, and head reveal no acute findi ngs. There is 3 rib fractures on the right side, which appears to be old. There is a foreign body p resent in the cecum approximately 3.5 cm. Again, this is unclear as to what it is. It is cylindrica l in shape. No other significant findings. Assessment: A 56-year-old female with right shoulder pain, leukocytosis, history of fall, and foreig n body in the cecum with old rib fractures. Recommendations: There is no acute surgical intervention required in this patient. I do think that we should check the toxicology screen and make sure the patient is not going into withdrawal symptoms and support this patient. Monitor her stool to see what this foreign body is. Again, there is no e vidence of any obstruction or perforation, so surgical intervention is certainly not indicated in thi s patient. Please re-consult Surgery p.r.n. Most of the care for this patient can be provided by [facility] hospitalist service. MILAN/DARRIN Voice ID: [id number] Report ID: [id number]
[2021-10-05] MEDS ORDERED: ASPIRIN EC 81 MG TAB PO SCH (09:00)
== END 2021-10-04 17:45 | disposition left against medical advice (07) ==
LOC: ER 10:52 → ERHOLD 16:37
PROVIDERS: ADMIT Internal Medicine; ATTEND Internal Medicine
DX: T18.5XXA Foreign body in anus and rectum, initial encounter (principal); M25.511 Pain in right shoulder; X58.XXXA Exposure to other specified factors, initial encounter; M32.9 Systemic lupus erythematosus, unspecified; D72.829 Elevated white blood cell count, unspecified; F17.210 Nicotine dependence, cigarettes, uncomplicated; Z53.29 Procedure and treatment not carried out because of patient's decision for other reasons; Z20.822 Contact with and (suspected) exposure to COVID-19
CPT/HCPCS: 96361; 85025; 80048; 36415; 86900; 86850; 86901; 80076; 83690; 70450; 72125; 71260; 74177; 72170; 73130; 73030; 90714; 96375; 96374; 99284; J2270 ×2; J7030; J2405; G0378

== ENCOUNTER 2021-12-19 11:48 | Emergency (ER) | payer BC ==
--- OUTSIDE RECORDS SUMMARY | 2021-12-19 11:51 | XMS REPORT | Continuity of Care Document ---
:1965 Author Organization [facility] t Address [address] [place] [address] Care Team Providers Name Role Phone ADLEAIDA Attending Clinician Unavailable Lab, Fam Pob I Attending Clinician Unavailable Anene [employer] HELPER Attending Clinician ANENE Attending Clinician Unavailable Doctor Unassigned, Name Attending Clinician Unavailable ADELAIDA Admitting Clinician Unavailable NARCISO Admitting Clinician Unavailable Payers Payer Name Policy Type Policy Number Effective Date Expiration Date S hellen BCBS OS [id number] 2017 00:00:00 POS/PPO/EPO Problems This patient has no known problems. Allergies, Adverse Reactions, Alerts Allergy Allergy Status Severity Reaction(s) Onset Inactive Treating Comm ents Source Name Type Date Date Clinician PROPOXYP Allergy Active 2020-[address] [facility]EN [facility] PENICILL Allergy Active 2020-[address] [facility] NO KNOWN Drug Active Univers ALLERGIE Class ity of [facility] Social History Social Habit Start Date Stop Date Quantity Comments Source Exposure to Yes [facility] SARS-CoV-2 (event) Medica l Branch Sex Assigned At [birth year] [facility] 00:00:00 00:00:00 [facility] Smoking Status Start Date Stop Date Source Unknown if ever smoked [facility] Medications This patient has no [...] Facility Department ID 2020-04-01 Inpatient ER ADELAIDA [facility] [id number] [facility] 19:58:00 ZAIN Med 2020-11-03 2020-11-03 Laboratory Lab, Adc Fam Pob I [facility] [id number] [facility] 14:44:53 15:04:53 Only [facility]u [facility] [id number] ity of [place] [id number] Silas as Professio [phone] [address] Office Building One 2020-11-03 2020-11-03 Outpatient R [facility] [id number] [facility] 14:40:00 14:40:00 NIRU ity of [facility] 2020-11-03 2020-11-03 Letter Doctor TIERA [id number] [facility] 00:00:00 00:00:00 (Out) Unassigned, DENILSON [id number] [facility] [id number] Silas as [phone] [address] Results Test Description Test Time Test Comments Results Result Comments Source BLOOD CULTURE 2020-04-07 01:01:00 Test Item Value Reference Range Interpretation Comme nts CULTURE (BEAKER) (test code = 1095) No growth in 5 days BLOOD [id number] 01:01:00 Test Item Value Reference Range Interpretation Comments CULTURE (BEAKER) (test No growth in 5 days code = 1095) TISSUE [id number] 10:54:00Surgical Pathology Report Case: [id number] Authorizing Provider: Duc Byers MD Collected: 04/03/2020 07:13 AM Ordering Location: [address] Med/Surg Received: 04/03/2020 08:34 AM Pathologist: Xin Hansen MD Specimen: Ul cer, pyloric ulcer PYLORIC ULCER, BIOPSY: - ANTRAL MUCOSA WITH REACTIVE GASTROPATHY WITH FOCAL ACUTE INFLAMMATION - NO INTESTINAL METAPLASIA, DYSPLASIA OR MALIGNANCY SEEN - NEGATIVE FOR H. PYLORI ORGANISMS Signing Pathologist Direct Phone Line: [phone] signed by Xin Hansen MD on 04/06/2020 at 10:54 [id number]; [id number] pain and weight lossPyloric ulcerSpecimen A is received in fixative and labeled with the patient's name, medical record number and designated as "ulcer" and consists of a pink-conklin tissue fragment that is 0.5 cm in greatest dimension. The tissue fragment is entirely submitted into A1. MG/pl Performed The interpretation of this case included the use of immunohistochemistryor special stains.Lelestarshakira: Negative for Helicobacter Pylori organisms. Control Slides Examined: In-house known positive controls were evaluated along with the test tissue. These control slidesrun alongside of the patients sample show appropriate staining. Internal positive and negative controls when available are evaluated Immunohistochemistry technical testing was performed at [facility], Pathology Laboratory where it was [...] perform high complexity clinical laboratory testing.BASIC METABOLIC [id number] 14:16:00 Test Item Value Reference Range Interpretation [...] S NOT APPLICABLE FOR DIALYSIS PATIEN TS. Payroll Lead ID - TSYRBASIC METABOLIC [id number] 06:48:00 Test Item Value Reference Range Interpretation [...] S NOT APPLICABLE FOR DIALYSIS PATIEN TS. Payroll Lead ID - [id number] 06:20:00 Test Item Value Reference Range Interpretation Comments MAGNESIUM (BEAKER) (test code = 1.6 mg/dL 1.5-3.0 627) Payroll Lead ID - RESORIANCBC (HEMOGRAM ONLY)2020-04-04 05:42:00 Test [...] (BEAKER) (test code = 413) U/S, ABDOMINAL, [id number] 17:44:00Reason for exam:->persistent nausea and abdominal painFINAL [...] MDReport Verified Date/Time: 04/03/2020 17:44:29 Reading Location: [facility] C013T Transitional Reading Room SARS-COV2/RT-PCR ([facility])2020-04-02 22:33:00 Test Item Value Reference Range Interpretation Comments SARS-COV2/RT-PCR (test Negative Not Detected, Negative, code = 4324745) See external report for linked test SARS-COV-2 PERFORMING LAB [facility] AGNIESZKA (test code = 3242369) Negative result for this test determines that [...] 564(g) of the Act.Fact Sheet for Healthcare Providers:https://www.[employer]/sites/default/files/product/documents/Fact_Alexandro moralest_RY_Dwilwasub_Sogg_WOJO-AkY-7.pdfFact Sheet for Healthcare Patients:https://www.[employer]/sites/default/files/product/ documents/Mqfj_Jhvfg_Lnafoofw_Brbv_XWHY-PoB-0.pdfPerforming Laboratory:[facility], [place] [address]GSNSL METABOLIC PANEL 2020-04-02 11:24:00 Test Item Value [...] S NOT APPLICABLE FOR DIALYSIS PATIEN TS. Payroll Lead ID - [id number] (HEMOGRAM ONLY)2020-04-02 11:08:00 Test Item Value Reference [...] = 413) CBC W/PLT COUNT & AUTO [id number] 23:22:00 Test Item Value Reference Range Interpretation [...] (test code Normal = 762) BASIC METABOLIC [id number] 22:55:00 Test Item Value Reference Range Interpretation [...] S NOT APPLICABLE FOR DIALYSIS PATIEN TS. Payroll Lead ID - [id number] 22:54:00 Test Item Value Reference Range Interpretation Comments MAGNESIUM (BEAKER) (test code = 1.8 mg/dL 1.5-3.0 627) Payroll Lead ID - [id number] FUNCTION [id number] 22:53:00 Test Item Value Reference Range Interpretation [...] (test code = 13 U/L 5-50 347) Payroll Lead ID - [id number] 22:48:00 Test Item Value Reference Range Interpretation [...] Information (Auto Output)Final Information (Auto Output)LACTIC ACID, [id number] 22:47:00 Test Item Value Reference Range Interpretation Comments LACTATE BLOOD VENOUS (2) (BEAKER) 1.09 mmol/L 0.50-2.00 (test code = 2872) Payroll Lead ID - [id number]
[2021-12-19 12:30] LABS: Absolute Lymphocytes (CBC) 2.8 K/uL (0.7-4.9); Hematocrit 44.8 % (36.0-45.0); Lymphocytes % 22.5 % (15.3-44.8); MPV 8.5 fL (7.6-11.3); RBC Red Blood Cell Count 5.01 M/uL (3.86-4.86)
[2021-12-19 12:34] LABS: Protime INR 1.16
[2021-12-19 12:48] LABS: Magnesium 1.8 mg/dL (1.8-2.4); Potassium 3.2 mmol/L (3.5-5.1); Troponin High Sensitivity 6.6 pg/mL (<58.9)
--- NOTE | 2021-12-19 13:18 | RAD REPORT ---
EXAM DESCRIPTION: Rula Single View12/19/2021 12:38 pm CLINICAL HISTORY: Chest pain COMPARISON: none FINDINGS: The lungs appear clear of acute infiltrate. The heart is normal size IMPRESSION: No acute abnormalities displayed
[2021-12-19] MEDS ORDERED: ONDANSETRON 4 MG/2 ML VIAL ONE (13:25)
[2021-12-19] MEDS ORDERED: MORPHINE 4 MG/ML SYR ONE (13:25)
[2021-12-19] MEDS ORDERED: NA CHLORIDE 0.9% 1,000 ML ONE (13:41)
--- NOTE | 2021-12-19 14:15 | RAD REPORT ---
EXAM DESCRIPTION: CT - Abdomen Pelvis W Contrast - 12/19/2021 1:57 pm CLINICAL HISTORY: Abdominal pain COMPARISON: none. TECHNIQUE: Computed axial tomography of the abdomen pelvis was obtained. 100 cc Isovue-300 was admin istered intravenously. Oral contrast was not requested which limits evaluation of bowel. All CT scans are performed using dose optimization technique as appropriate and may include automated exposure control or mA/KV adjustment according to patient size. FINDINGS: Cholecystectomy. Prominence of common bile duct. The liver, spleen, pancreas, adrenal and kidneys appear unremarkable. There is no evidence of diverticulitis. Normal appendix. No adnexal mass IMPRESSION: Prominence of the common bile duct. This can be a normal finding in a patient status pos t cholecystectomy. Pathology such as a stricture or nonvisualized stone can also result in this appea tonie
[2021-12-19] MEDS ORDERED: POTASSIUM 25 MEQ EFFERV TAB ONE (15:03)
--- NOTE | 2021-12-19 15:23 | ER ---
Nurse's Notes [facility] Name: Hannah Arthur Age: 56 yrs Sex: Female : 1965 Arrival Date: 12/19/2021 Time: 11:49 Bed 20 Private MD: SEBASTIAN LOUIS Diagnosis: Abdominal pain, Generalized Presentation: 12/19 11:55 Chief complaint: Patient states: DIARRHEA, NAUSEA AND VOMITING. Coronavirus screen: At bp this time, the client does not indicate any symptoms associated with coronavirus-19. Ebola Screen: No symptoms or risks identified at this time. Initial Sepsis Screen: Does the patient meet any 2 criteria? No. Patient's initial sepsis screen is negative. Does the patient have a suspected source of infection? No. Patient's initial sepsis screen is negative. Risk Assessment: Do you want to hurt yourself or someone else? Patient reports no desire to harm self or others. Onset of symptoms is unknown. 11:55 Method Of Arrival: Wheelchair bp 11:55 Acuity: AIDEE 3 bp Triage Assessment: 11:55 General: Appears distressed, uncomfortable, Behavior is cooperative, appropriate for bp age, anxious. Pain: Complains of pain in abdomen. EENT: No deficits noted. Neuro: No deficits noted. Cardiovascular: No deficits noted. Respiratory: No deficits noted. GI: Reports diarrhea, nausea, vomiting. : No signs and/or symptoms were reported regarding the genitourinary system. Derm: No deficits noted. Musculoskeletal: No deficits noted. Historical: - Allergies: 12:26 Darvocet-N 100; bp 12:26 PENICILLINS; bp - Home Meds: 12:26 tizanidine Oral [Active]; Lyrica Oral [Active]; Trazodone Oral [Active]; bp - PMHx: 12:26 Arthritis; Lupus; DEGENERATIVE DISC DISEASE; Ulcer; bp - Immunization history:: Adult Immunizations up to date. - Social history:: Smoking status: unknown. - Family history:: not pertinent. Screenin:55 Abuse screen: Denies threats or abuse. Denies injuries from another. Nutritional bp screening: No deficits noted. Tuberculosis screening: No symptoms or risk factors identified. Fall Risk None identified. Assessment: 11:55 General: SEE TRIAGE NOTE. bp 13:46 Reassessment: No changes from previously documented assessment. Patient and/or family bp updated on plan of care and expected duration. Pain level reassessed. PT TO CT. Vital Signs: 11:55 BP 152 / 96; Pulse 86; Resp 21; Temp 97.5; Pulse Ox 97% ; Weight 81.65 kg; Height 5 ft. bp 3 in. (160.02 cm); 13:45 BP 130 / 72; Pulse 69; Resp 10; Pulse Ox 99% ; bp 15:34 BP 145 / 79; Pulse 82; Resp 22; Pulse Ox 100% ; bp 11:55 Body Mass Index 31.89 (81.65 kg, 160.02 cm) bp ED Course: 11:49 Patient arrived in ED. am2 11:49 SEBASTIAN LOUIS is Private Physician. am2 11:55 Patient maintains SpO2 saturation greater than 95% on room air. bp 11:55 Arm band placed on. bp 11:55 Patient has correct armband on for positive identification. Bed in low position. Call bp light in reach. Side rails up X2. Adult w/ patient. Pulse ox on. NIBP on. 11:58 Justin Canela MD is Attending Physician. ma2 12:02 Bang Mary, RN is Primary Nurse. bp 12:03 EKG done, by ED staff, reviewed by Justin Canela MD. dh3 12:18 Initial lab(s) drawn, by ne, sent to lab. Inserted saline lock: 20 gauge in right dh3 forearm, using aseptic technique. Blood collected. 12:23 Triage completed. bp 12:40 XRAY Chest (1 view) In Process Unspecified. EDMS 13:59 CT Abd/Pelvis - IV Contrast Only In Process Unspecified. EDMS 15:22 Cruzito Vines MD is Referral Physician. ma2 15:34 No provider procedures requiring assistance completed. IV discontinued, intact, bp bleeding controlled, No redness/swelling at site. Pressure dressing applied. Administered Medications: 13:15 Drug: morphine 4 mg Route: IVP; Site: right forearm; bp 14:55 Follow up: Response: Pain is decreased bp 13:15 Drug: Zofran (Ondansetron) 4 mg Route: IVP; Site: right forearm; bp 14:55 Follow up: Response: No adverse reaction bp 13:15 Drug: NS 0.9% 1000 ml Route: IV; Rate: 1 bolus; Site: right forearm; bp 15:35 Follow up: IV Status: Completed infusion; IV Intake: 1000ml bp 13:32 Not Given (Patient Refused; h/o bleeding ulcer): Aspirin Chewable Tablet 324 mg PO bp once; 81 mg tablets x 4 15:00 Drug: Potassium Chloride Liquid 40 mEq Route: PO; bp 15:21 Follow up: Response: No adverse reaction bp Medication: 11:55 VIS not applicable for this client. bp Intake: 15:35 IV: 1000ml; Total: 1000ml. bp Outcome: 15:22 Discharge ordered by MD. malik 15:34 Discharged to home ambulatory, with family. bp 15:34 Condition: stable 15:34 Discharge instructions given to patient, Instructed on discharge instructions, follow up and referral plans. medication usage, Demonstrated understanding of instructions, follow-up care, medications, Prescriptions given X 4. 15:36 Patient left the ED. bp Signatures: Dispatcher [employer] EDMS Jade Alanis 2 Mariah Morris 3 Bang Mary, REECE RN bp Justin Canela MD MD ma2 Corrections: (The following items were deleted from the chart) 12:25 11:55 BP 152 / 96; Pulse 86bpm; Resp 21bpm; Pulse Ox 97%; Temp 97.5F; bp bp
--- NOTE | 2021-12-19 15:23 | EDPHYS ---
Physician Documentation [facility] Name: Hannah Arthur Age: 56 yrs Sex: Female : 1965 Arrival Date: 12/19/2021 Time: 11:49 Bed 20 Private MD: SEBASTIAN [facility] ED Physician Justin Canela HPI: 12/19 12:57 This 56 yrs old Female presents to ER via Wheelchair with complaints of diarrhea. ma2 12:57 56-year-old female history of arthritis and lupus, presents with diarrhea for 1 day, ma2 patient stated that she feels dehydrated, patient denies chest pain or tightness, denies vomiting, denies abdominal pain, of note patient stated that she smoked marijuana and they found a pipe that she think it was accidentally inserted into her colon 2 months ago.. Historical: - Allergies: 12:26 Darvocet-N 100; bp 12:26 PENICILLINS; bp - Home Meds: 12:26 tizanidine Oral [Active]; Lyrica Oral [Active]; Trazodone Oral [Active]; bp - PMHx: 12:26 Arthritis; Lupus; DEGENERATIVE DISC DISEASE; Ulcer; bp - Immunization history:: Adult Immunizations up to date. - Social history:: Smoking status: unknown. - Family history:: not pertinent. ROS: 12:57 Constitutional: Negative for fever, chills, and weight loss. ma2 12:57 All other systems are negative. Exam: 12:57 Constitutional: This is a well developed, well nourished patient who is awake, alert, ma2 and in no acute distress. Chest/axilla: Normal chest wall appearance and motion. Nontender with no deformity. No lesions are appreciated. Cardiovascular: Regular rate and rhythm with a normal S1 and S2. No gallops, murmurs, or rubs. Normal PMI, no JVD. No pulse deficits. Respiratory: Lungs have equal breath sounds bilaterally, clear to auscultation and percussion. No rales, rhonchi or wheezes noted. No increased work of breathing, no retractions or nasal flaring. Abdomen/GI: Soft, non-tender, with normal bowel sounds. No distension or tympany. No guarding or rebound. No evidence of tenderness throughout. Back: No spinal tenderness. No costovertebral tenderness. Full range of motion. Skin: Warm, dry with normal turgor. Normal color with no rashes, no lesions, and no evidence of cellulitis. MS/ Extremity: Pulses equal, no cyanosis. Neurovascular intact. Full, normal range of motion. Neuro: Awake and alert, GCS 15, oriented to person, place, time, and situation. Cranial nerves II-XII grossly intact. Motor strength 5/5 in all extremities. Sensory grossly intact. Cerebellar exam normal. Normal gait. Vital Signs: 11:55 BP 152 / 96; Pulse 86; Resp 21; Temp 97.5; Pulse Ox 97% ; Weight 81.65 kg; Height 5 ft. bp 3 in. (160.02 cm); 13:45 BP 130 / 72; Pulse 69; Resp 10; Pulse Ox 99% ; bp 15:34 BP 145 / 79; Pulse 82; Resp 22; Pulse Ox 100% ; bp 11:55 Body Mass Index 31.89 (81.65 kg, 160.02 cm) bp MDM: 12:57 Differential diagnosis: No chest pain, or tightness or angina equivalent, however ma2 patient has diarrhea, dehydration, unlikely gastritis or enteritis. Data reviewed: vital signs, nurses notes, EMS record. 15:03 Patient medically screened. [facility] 12/19 11:59 Order name: Basic Metabolic Panel; Complete Time: 12:49 [facility] 12/19 11:59 Order name: CBC with Diff; Complete Time: 12:44 [facility] 12/19 11:59 Order name: Magnesium; Complete Time: 12:49 [facility] 12/19 11:59 Order name: NT PRO-BNP; Complete Time: 12:49 [facility] 12/19 11:59 Order name: PT-INR; Complete Time: 12:44 ca12/19 11:59 Order name: Troponin HS; Complete Time: 12:49 [facility] 12/19 11:59 Order name: XRAY Chest (1 view); Complete Time: 14:07 [facility] 12/19 11:59 Order name: EKG; Complete Time: 12:00 ca12/19 12:57 Order name: CT Abd/Pelvis - IV Contrast Only; Complete Time: 14:48 [facility] 12/19 11:59 Order name: Cardiac monitoring; Complete Time: 12:08 [facility] 05/15 11:59 Order name: EKG - Nurse/Tech; Complete Time: 12:09 [facility] 12/19 11:59 Order name: IV Saline Lock; Complete Time: 12:21 [facility] 12/19 11:59 Order name: Labs collected and sent; Complete Time: 12:21 [facility] 12/19 11:59 Order name: O2 Per Protocol; Complete Time: 12:09 [facility] 12/19 11:59 Order name: O2 Sat Monitoring; Complete Time: 12:09 [facility] Administered Medications: 13:15 Drug: morphine 4 mg Route: IVP; Site: right forearm; bp 14:55 Follow up: Response: Pain is decreased bp 13:15 Drug: Zofran (Ondansetron) 4 mg Route: IVP; Site: right forearm; bp 14:55 Follow up: Response: No adverse reaction bp 13:15 Drug: NS 0.9% 1000 ml Route: IV; Rate: 1 bolus; Site: right forearm; bp 15:35 Follow up: IV Status: Completed infusion; IV Intake: 1000ml bp 13:32 Not Given (Patient Refused; h/o bleeding ulcer): Aspirin Chewable Tablet 324 mg PO bp once; 81 mg tablets x 4 15:00 Drug: Potassium Chloride Liquid 40 mEq Route: PO; bp 15:21 Follow up: Response: No adverse reaction bp Disposition Summary: 12/19/21 15:22 Discharge Ordered Location: Home ma2 Condition: Stable ma2 Diagnosis - Abdominal pain, Generalized ma2 Followup: ma2 - With: - When: Tomorrow - Reason: If symptoms return, Continuance of care Discharge Instructions: - Discharge Summary Sheet ma2 - Abdominal Pain, Adult ma2 Forms: - Medication Reconciliation Form ma2 - Thank You Letter ma2 - Antibiotic Education ma2 - Prescription Opioid Use ma2 Prescriptions: - Zofran 4 mg Oral Tablet - take 1 tablet by ORAL route every 12 hours As needed; 20 tablet; Refills: 0, ma2 Product Selection Permitted - Diclofenac Sodium 75 mg Oral Tablet Sustained Release - take 1 tablet by ORAL route 2 times per day; 30 tablet; Refills: 0, Product ma2 Selection Permitted - Pepcid 20 mg Oral Tablet - take 1 tablet by ORAL route once daily for 10 days; 10 tablet; Refills: 0, ma2 Product Selection Permitted - Potassium Chloride 10 mEq Oral capsule, extended release - take 1 tablet by ORAL route every 2 days; 10 tablet; Refills: 0, Product ma2 Selection Permitted Signatures: Dispatcher [employer] Bang Scanlon RN RN bp Justin Canela MD MD ma2 Jared Stevens MD MD [id number] Corrections: (The following items were deleted from the chart) 12:59 12:57 56-year-old female history of arthritis and lupus, presents with diarrhea for 1 ma2 day, patient stated that she feels dehydrated, patient denies chest pain or tightness, denies vomiting, denies abdominal pain, of note patient stated that she smoked marijuana and they found a pipe that she think it was accidentally inserted into her colon to months ago.. ma2
[2021-12-19 15:43] VITALS: TEMP 97.5
[2021-12-19 15:46] VITALS: BP 145/79; O2SAT 100
--- NOTE | 2021-12-20 10:06 | EKG ---
Test Date: 2021-12-19 Test Time: 11:59:40 Technology Applications Teacher: CHING MEASUREMENT RESULTS: Intervals: Rate: 94 DC: 150 QRSD: 88 QT: 382 QTc: 477 Whitman: P: 71 DC: 150 QRS: 76 T: 70 INTERPRETIVE STATEMENTS: Normal sinus rhythm Nonspecific ST abnormality Abnormal ECG Compared to ECG 10/17/2018 11:06:39 ST (T wave) deviation now present Electronically Signed On 12-20-21 10:02:45 CDT by Esteban Courtney
== END 2021-12-19 15:36 | disposition home or self-care (01) ==
LOC: ER 11:48
DX: R10.84 Generalized abdominal pain (principal); R19.7 Diarrhea, unspecified; Z88.0 Allergy status to penicillin; Z88.5 Allergy status to narcotic agent
CPT/HCPCS: 96361; 93005; 85025; 80048; 36415; 83735; 85610; 84484; 83880; 74177; 71045; 96375; 96374; 99284; Q9967; J7030; J2405

== ENCOUNTER 2024-03-06 12:56 | Emergency (ER) | payer BC ==
[2024-03-06] MEDS ORDERED: ONDANSETRON 4 MG/2 ML VIAL ONE (13:40)
[2024-03-06] MEDS ORDERED: FENTANYL CITR 100 MCG/2 ML ONE (13:40)
[2024-03-06] MEDS ORDERED: FAMOTIDINE 20 MG/2 ML VIAL IV ONE (13:41)
[2024-03-06 13:46] LABS: Absolute Basophils 0.3 K/uL (0-0.5); Absolute Lymphocytes (CBC) 3.9 K/uL (0.7-4.9); Absolute Monocytes 1.6 K/uL (0.1-1.3); Basophils % 1.1 % (0-1.3); Hematocrit 41.3 % (36.0-45.0); Hemoglobin 13.8 g/dL (12.0-15.0); Lymphocytes % 17.1 % (15.3-44.8); MCH 31.9 pg (27.0-35.0); MCHC 33.5 g/dL (32.0-36.0); MCV 95.3 fL (80-100); MPV 8.4 fL (7.6-11.3); Monocytes % 7.2 % (3.3-12.3); Neutrophils % 74.6 % (41.7-73.7); Platelets 331 thou/uL (152-406); RBC Red Blood Cell Count 4.34 M/uL (3.86-4.86); Red Cell Distribution Width 12.6 % (12.1-15.2)
[2024-03-06 14:01] LABS: Albumin 4.6 g/dL (3.4-5.0); Albumin/Globulin Ratio 1.4 (1.1-1.8); Anion Gap 10.3 mEq/L (5.0-15.0); Bilirubin Total 0.9 mg/dL (0.2-1.0); Globulin 3.2 g/dL (2.3-3.5); Potassium 3.3 mEq/L (3.5-5.1); Protein, Total 7.8 g/dL (6.4-8.2)
--- NOTE | 2024-03-06 14:17 | RAD REPORT ---
EXAM DESCRIPTION: CTAbdomen Pelvis W Contrast - 03/06/2024 2:08 pm CLINICAL HISTORY: Abdominal pain. ABD PAIN COMPARISON: Abdomen Pelvis W Contrast dated 12/19/2021 TECHNIQUE: CT imaging of the abdomen and pelvis was performed with 100 ml non-ionic IV contrast. All CT scans are performed using dose optimization technique as appropriate and may include automated exposure control or mA/KV adjustment according to patient size. FINDINGS: The lung bases are clear. The liver demonstrates mild fatty infiltration. Cholecystectomy. Spleen, pancreas, adrenal glands and kidneys are within normal limits. No bowel obstruction, free air, free fluid or abscess. The appendix is not identified as a discrete structure, however, no secondary findings of appendicitis are identified. Aortoiliac atherosclerosis . No evidence of significant lymphadenopathy. Prominent degenerative change in both hips and the lower lumbar spine. IMPRESSION: No acute intra-abdominal or pelvic finding.
[2024-03-06 14:44] LABS: Blood Morphology Comment NOT SEEN (NOT SEEN); Platelet Estimate ADEQ; White Blood Cell Scan OK (OK)
[2024-03-06] MEDS ORDERED: PROMETHAZINE INJ 25 MG/ML AMP ONE (14:52)
[2024-03-06] MEDS ORDERED: NA CHLORIDE 0.9% 50 ML ONE (14:52)
[2024-03-06 17:20] LABS: Sqamous Epithelial <5 /HPF (None Seen); Urine Bacteria None Seen /HPF (<20); Urine Bilirubin NEGATIVE (Negative); Urine Blood Trace (Negative); Urine Clarity Clear (Clear); Urine Color Light-Yellow (Yellow); Urine Crystals Unidentified Few /HPF (None Seen); Urine Culture Reflex Order NOT NEEDED; Urine Glucose NEGATIVE (Negative); Urine Ketones 1+ (Negative); Urine Microscopic Reflex YN ORDER UMIC; Urine Mucus Slight /HPF (None Seen); Urine Nitrite NEGATIVE (Negative); Urine Protein 1+ (Negative); Urine RBC <5 /HPF (None Seen); Urine Urobilinogen Normal (Normal); Urine WBC <5 /HPF (<5); Urine pH 6.5 (5.0-7.0)
[2024-03-06 17:21] LABS: Specific Gravity > 1.030 (1.005-1.030)
--- NOTE | 2024-03-06 17:34 | EDPHYS ---
Physician Documentation [facility] Name: Hannah Arthur Age: 58 yrs Sex: Female : 1965 Arrival Date: 03/06/2024 Time: 12:56 Bed 26 Private MD: ED Physician Anatoliy Bowman HPI: 03/06 13:32 This 58 yrs old Female presents to ER via EMS with complaints of kb Nausea/Vomiting/Diarrhea. 13:32 Patient is a 58-year-old female who presents for nausea, vomiting, diarrhea, abdominal kb pain that started 6 days ago. Denies fever. States she had this in 2019 and it was due to ulcers. States she has been tolerating popsicles intermittently.. Historical: - Allergies: 13:09 Darvocet-N 100; cm10 13:09 PENICILLINS; cm10 - PMHx: 13:09 Arthritis; Degenerative disc disease; Lupus; ULCER; cm10 - Immunization history:: Adult Immunizations up to date. - Infectious Disease History:: Denies. - Social history:: Smoking status: unknown. ROS: 13:32 Constitutional: As per HPI kb Exam: 13:32 Constitutional: This is a well developed, well nourished patient who is awake, alert, kb and in no acute distress. Head/Face: Normocephalic, atraumatic. ENT: Moist Mucous membranes Cardiovascular: Regular rate Respiratory: Respirations even and unlabored. No increased work of breathing. Talking in full sentences Skin: Warm, dry with normal turgor. Normal color. MS/ Extremity: Pulses equal, no cyanosis. Neurovascular intact. Full, normal range of motion. Neuro: Awake and alert, GCS 15, oriented to person, place, time, and situation. Moves all extremities. Normal gait. 13:32 Abdomen/GI: Inspection: abdomen appears normal, Bowel sounds: normal, Palpation: soft, in all quadrants, moderate abdominal tenderness, in all quadrants, Vital Signs: 13:00 BP 115 / 77; Pulse 96; Resp 18; Pulse Ox 100% on R/A; cm10 13:07 BP 109 / 65; Pulse 87; Resp 18; Temp 98.1; Pulse Ox 99% on R/A; Weight 86.18 kg; Height cm10 5 ft. 99 in. ; Pain 6/10; 13:15 BP 108 / 57; Pulse 96; Resp 18; Pulse Ox 99% on R/A; cm10 13:30 BP 121 / 78; Pulse 92; Resp 16; Pulse Ox 100% on R/A; cm10 13:45 BP 144 / 61; Pulse 65; Resp 16; Pulse Ox 100% on R/A; cm10 15:00 BP 136 / 62; Pulse 85; Resp 16; Pulse Ox 100% on R/A; cm10 15:30 BP 144 / 68; Pulse 76; Resp 18; Pulse Ox 100% on R/A; cm10 16:00 BP 139 / 67; Pulse 58; Resp 18; Pulse Ox 100% ; cm10 16:30 BP 134 / 60; Pulse 68; Resp 16; Pulse Ox 100% on R/A; cm10 17:55 BP 150 / 69; Pulse 69; Resp 16; Pulse Ox 98% ; cm10 13:07 Body Mass Index 5.28 (86.18 kg, 403.86 cm) cm10 13:07 Pain Scale: Adult cm10 MDM: 13:10 Patient medically screened. kb 17:31 Differential diagnosis: Nonspecific abd pain, gastritis, viral gastroenteritis, PUD. kb Data reviewed: vital signs, nurses notes. Consideration of Admission/Observation Escalation of care including admission/observation considered. admission considered for elevated white count, vomiting. CT without acute findings, pt tolerating po intake. No signs of bacterial infection. Counseling: I had a detailed discussion with the patient and/or guardian regarding the historical points, exam findings, and any diagnostic results supporting the discharge/admit diagnosis, lab results, radiology results, the need for outpatient follow up, a family practitioner, to return to the emergency department if symptoms worsen or persist or if there are any questions or concerns that arise at home. ED course: Pt is feeling better and tolerating po intake. Pt in agreement with outpatient follow up. Return precautions given. Pt will follow up with GI. 03/06 13:23 Order name: CBC with Diff; Complete Time: 14:51 kb 03/06 13:23 Order name: CMP; Complete Time: 14:03 kb 03/06 13:23 Order name: Lipase; Complete Time: 14:03 kb 03/06 13:23 Order name: Urinalysis w/ reflexes; Complete Time: 17:28 kb 03/06 14:44 Order name: CBC Smear Scan; Complete Time: 14:51 EDMS 07/31 13:23 Order name: CT Abd/Pelvis - IV Contrast Only; Complete Time: 14:20 kb 03/06 13:23 Order name: IV Saline Lock; Complete Time: 13:37 kb 03/06 13:23 Order name: Labs collected and sent; Complete Time: 13:37 kb 03/06 14:21 Order name: PO challenge; Complete Time: 14:41 kb 03/06 16:33 Order name: PO challenge; Complete Time: 17:09 kb Administered Medications: 13:34 Drug: NS 0.9% IV 1000 ml IV at 1 bolus Per protocol; 1000 mL bolus Route: IV; Rate: 1 cm10 bolus; Site: right antecubital; 15:53 Follow up: Response: No adverse reaction; IV Status: Completed infusion; IV Intake: cm10 1000ml 13:56 Drug: Famotidine IVP 20 mg IVP once; dilute with 10 mL 0.9% NaCl; give over 2 minutes cm10 Route: IVP; Site: right antecubital; 15:54 Follow up: Response: No adverse reaction cm10 13:56 Drug: Ondansetron IVP 4 mg IVP once; over 2 minutes Route: IVP; Site: right antecubital;cm10 15:54 Follow up: Response: No adverse reaction cm10 13:56 Drug: fentaNYL (PF) IVP 25 mcg IVP once Route: IVP; Site: right antecubital; cm10 15:54 Follow up: Response: No adverse reaction cm10 14:51 CANCELLED (Duplicate Order): [id number] mg IM once kb 14:59 Drug: Promethazine IVP 12.5 mg IVP once Route: IVP; Site: right antecubital; cm10 15:53 Follow up: Response: No adverse reaction; Marked relief of symptoms cm10 Disposition: 21:27 Co-signature as Attending Physician, Anatoliy Bowman MD I agree with the assessment and jeni plan of care. Disposition Summary: 03/06/24 17:33 Discharge Ordered Notes: Location: Home kb Condition: Stable kb Diagnosis - Nausea with vomiting, unspecified kb - Diarrhea, unspecified kb Followup: kb - With: Emergency Department - When: As needed - Reason: Worsening of condition Followup: kb - With: Private Physician - When: 2 - 3 days - Reason: Recheck today's complaints, Continuance of care, Re-evaluation by your physician Discharge Instructions: - Discharge Summary Sheet kb - Food Choices to Help Relieve Diarrhea, Adult kb - Viral Gastroenteritis, Adult, [id number] kb - Nausea and Vomiting, Adult, [id number] kb Forms: - Work release form kb - Medication Reconciliation Form kb - Antibiotic Education kb - Prescription Opioid Use kb - Patient Portal Instructions kb - Leadership Thank You Letter kb Prescriptions: - Protonix 40 mg Oral Tablet - take 1 tablet ORAL route once daily; 30 tablet; Refills: 0, Product Selection kb Permitted - promethazine 25 mg Oral tablet - take 1 tablet ORAL route every 8 hours As needed; 20 tablet; Refills: 0, kb Product Selection Permitted Signatures: Dispatcher [employer] EDOra Lopez, SALOON KEEPER-C SALOON KEEPER-Anatoliy Elizabeth MD MD cha Martinez, Clarissa RN RN cm10 Corrections: (The following items were deleted from the chart) 14:51 14:51 Promethazine IM 25 mg IM once ordered. kb kb
--- NOTE | 2024-03-06 17:34 | ER ---
Nurse's Notes [facility] Name: Hannah Arthur Age: 58 yrs Sex: Female : 1965 Arrival Date: 03/06/2024 Time: 12:56 Bed 26 Private MD: Diagnosis: Nausea with vomiting, unspecified;Diarrhea, unspecified Presentation: 03/06 13:07 Chief complaint: EMS states: Called to patient's home due to patient having nausea, cm10 vomiting, diarrhea and abdominal pain onset Monday. Coronavirus screen: Client denies travel out of the [place] in the last 14 days. At this time, the client does not indicate any symptoms associated with coronavirus-19. Ebola Screen: Patient denies travel to an Ebola-affected area in the 21 days before illness onset. No symptoms or risks identified at this time. Initial Sepsis Screen: Does the patient meet any 2 criteria? No. Patient's initial sepsis screen is negative. Does the patient have a suspected source of infection? No. Patient's initial sepsis screen is negative. Risk Assessment: Do you want to hurt yourself or someone else? Patient reports no desire to harm self or others. Onset of symptoms was March 06, 2024. Care prior to arrival: Medication(s) given: Normal saline infusion, 250mL zofran 4 mg, IV initiated. 18 GA, in the right antecubital area. 13:07 Method Of Arrival: EMS: [facility] 13:07 Acuity: AIDEE 3 cm10 Triage Assessment: 13:10 General: Appears in no apparent distress. uncomfortable, Behavior is calm, cooperative. cm10 Pain: Complains of pain in abdomen Pain currently is 6 out of 10 on a pain scale. Quality of pain is described as burning, stabbing. Neuro: No deficits noted. Level of Consciousness is awake, alert, obeys commands, Oriented to person, place, time, situation, Appropriate for age. Respiratory: No deficits noted. Airway is patent Respiratory effort is even, unlabored, Respiratory pattern is regular, symmetrical. GI: No deficits noted. Reports upper abdominal pain, diarrhea, nausea, vomiting. Musculoskeletal: No deficits noted. Range of motion: intact in all extremities. Historical: - Allergies: 13:09 Darvocet-N 100; cm10 13:09 PENICILLINS; cm10 - PMHx: 13:09 Arthritis; Degenerative disc disease; Lupus; ULCER; cm10 - Immunization history:: Adult Immunizations up to date. - Infectious Disease History:: Denies. - Social history:: Smoking status: unknown. Screenin:00 [facility] ED Fall Risk Assessment (Adult) History of falling in the last 3 months, cm10 including since admission No falls in past 3 months (0 pts) Confusion or Disorientation No (0 pts) Intoxicated or Sedated No (0 pts) Impaired Gait No (0 pts) Mobility Assist Device Used No (0 pt) Altered Elimination No (0 pt) Score/Fall Risk Level 0 - 2 = Low Risk Oriented to surroundings, Maintained a safe environment, Hourly rounding (assess needs \T\ fall precautionary measures) done. Abuse screen: Denies threats or abuse. Denies injuries from another. Nutritional screening: No deficits noted. Tuberculosis screening: No symptoms or risk factors identified. Assessment: 14:50 Reassessment: Pt not tolerating PO challenge, provider made aware. cm10 15:53 Reassessment: Patient states feeling better. Patient states symptoms have improved. cm10 Vital Signs: 13:00 BP 115 / 77; Pulse 96; Resp 18; Pulse Ox 100% on R/A; cm10 13:07 BP 109 / 65; Pulse 87; Resp 18; Temp 98.1; Pulse Ox 99% on R/A; Weight 86.18 kg; Height cm10 5 ft. 99 in. ; Pain 6/10; 13:15 BP 108 / 57; Pulse 96; Resp 18; Pulse Ox 99% on R/A; cm10 13:30 BP 121 / 78; Pulse 92; Resp 16; Pulse Ox 100% on R/A; cm10 13:45 BP 144 / 61; Pulse 65; Resp 16; Pulse Ox 100% on R/A; cm10 15:00 BP 136 / 62; Pulse 85; Resp 16; Pulse Ox 100% on R/A; cm10 15:30 BP 144 / 68; Pulse 76; Resp 18; Pulse Ox 100% on R/A; cm10 16:00 BP 139 / 67; Pulse 58; Resp 18; Pulse Ox 100% ; cm10 16:30 BP 134 / 60; Pulse 68; Resp 16; Pulse Ox 100% on R/A; cm10 17:55 BP 150 / 69; Pulse 69; Resp 16; Pulse Ox 98% ; cm10 13:07 Body Mass Index 5.28 (86.18 kg, 403.86 cm) cm10 13:07 Pain Scale: Adult cm10 ED Course: 13:02 Patient arrived in ED. cm10 13:09 Triage completed. cm10 13:10 O[facility] Velarde F[facility]-C [facility] kb 13:10 Anatoliy Bowman MD is Attending Physician. kb 13:11 Arm band placed on Patient placed in an exam room, on a stretcher. cm10 13:12 Maintain EMS IV. Dressing intact. Good blood return noted. Site clean \T\ dry. Gauge \T\ cm 10 site: 18G right ac. IV is patent, is intact, Flushed right antecubital with 5 ml normal saline. 13:34 Milli Seth, REECE is Primary Nurse. cm10 13:38 CBC with Diff Sent. cm10 13:38 CMP Sent. cm10 13:38 Lipase Sent. cm10 13:38 Initial lab(s) drawn, by me, sent to lab. cm10 14:00 Patient has correct armband on for positive identification. Bed in low position. Call cm10 light in reach. Side rails up X2. Provided Education on: ER process and procedures.. Pulse ox on. NIBP on. 14:10 CT Abd/Pelvis - IV Contrast Only In Process Unspecified. EDMS 17:56 No provider procedures requiring assistance completed. IV discontinued, intact, cm10 bleeding controlled, No redness/swelling at site. Pressure dressing applied. Administered Medications: 13:34 Drug: NS 0.9% IV 1000 ml IV at 1 bolus Per protocol; 1000 mL bolus Route: IV; Rate: 1 cm10 bolus; Site: right antecubital; 15:53 Follow up: Response: No adverse reaction; IV Status: Completed infusion; IV Intake: cm10 1000ml 13:56 Drug: Famotidine IVP 20 mg IVP once; dilute with 10 mL 0.9% NaCl; give over 2 minutes cm10 Route: IVP; Site: right antecubital; 15:54 Follow up: Response: No adverse reaction cm10 13:56 Drug: Ondansetron IVP 4 mg IVP once; over 2 minutes Route: IVP; Site: right antecubital;cm10 15:54 Follow up: Response: No adverse reaction cm10 13:56 Drug: fentaNYL (PF) IVP 25 mcg IVP once Route: IVP; Site: right antecubital; cm10 15:54 Follow up: Response: No adverse reaction cm10 14:51 CANCELLED (Duplicate Order): [id number] mg IM once kb 14:59 Drug: Promethazine IVP 12.5 mg IVP once Route: IVP; Site: right antecubital; cm10 15:53 Follow up: Response: No adverse reaction; Marked relief of symptoms cm10 Medication: 17:57 VIS not applicable for this client. cm10 Intake: 15:53 IV: 1000ml; Total: 1000ml. cm10 Outcome: 17:33 Discharge ordered by . kb 17:57 Discharged to home ambulatory, with family, cm10 17:57 Condition: good 17:57 Discharge instructions given to patient, Instructed on discharge instructions, follow up and referral plans. medication usage, Demonstrated understanding of instructions, follow-up care, medications, Prescriptions given X 2, 17:57 Patient left the ED. cm10 Signatures: Dispatcher [employer] Ora Benitez, BENIGNO-Larry PELAEZ-Milli Gottlieb, RN RN cm10
[2024-03-06 23:15] VITALS: TEMP 98.1
[2024-03-06 23:25] VITALS: BP 150/69; O2SAT 98
== END 2024-03-06 17:57 | disposition home or self-care (01) ==
LOC: ER 12:56
DX: R11.2 Nausea with vomiting, unspecified (principal); R19.7 Diarrhea, unspecified
CPT/HCPCS: 36415; 74177; 80053; 81001; 83690; 85025; 96361; 96374; 96375; 99284; J2405; J2550; J3010; Q9967